=== PATIENT | female | born 1990 | race Caucasian/White ===

== ENCOUNTER 2018-03-30 11:18 | Inpatient (IN) | payer OTHER ==
[~2018-03-30] VITALS: Ht 165.1 cm; Wt 127.0 kg
[2018-03-30] MEDS ORDERED: METOCLOPRAMIDE HCL 5 MG/ML 2 ML VIAL IVP PRN (11:45)
[2018-03-30] MEDS ORDERED: LIDOCAINE/PF 1% 30 ML VIAL INJ PRN (11:45)
[2018-03-30] MEDS ORDERED: FentaNYL CITRATE-PF 100 MCG/2 ML VIAL IVP PRN (11:45)
[2018-03-30] MEDS ORDERED: RINGERS SOLUTION,LACTATED 1,000 ML IV PRN (11:45)
[2018-03-30] MEDS ORDERED: CITRIC ACID/SODIUM CITRATE 30 ML SOLUTION UDCUP PO PRN (11:45)
[2018-03-30] MEDS ORDERED: OXYTOCIN 30 UNITS/LACT RINGERS 500 ML IV ONE (11:45)
[2018-03-30] MEDS ORDERED: OXYGEN THERAPY IH SCH (11:45)
[2018-03-30 11:53] VITALS: BP 138/82
[2018-03-30 12:33] LABS: BASOPHILS % (AUTO) 0.3 % (0.0-2.0); EOSINOPHILS % (AUTO) 0.2 % (1.0-6.0); HEMATOCRIT 38.2 % (36-46); HEMOGLOBIN 12.6 g/dL (12.0-16.0); LYMPHOCYTES # (AUTO) 2.3 K/uL (1.0-4.8); LYMPHOCYTES % (AUTO) 18.7 % (22.0-44.0); MEAN CORPUSCULAR HEMOGLOBIN 29.7 pg (26.0-34.0); MEAN CORPUSCULAR VOLUME 90 fL (80-100); MONOCYTES # (AUTO) 0.7 K/uL (0.1-1.0); MONOCYTES % (AUTO) 5.4 % (2.0-9.0); NEUTROPHILS # (AUTO) 9.2 K/uL (1.8-7.7); NEUTROPHILS % (AUTO) 75.4 % (40.0-70.0); PLATELET COUNT (AUTO)-OB 290 K/uL (150-450); RED BLOOD CELL COUNT(AUTO) 4.26 MIL/uL (4.00-5.20); RED CELL DISTRIBUTION WIDTH 13.6 % (11.5-14.5)
[2018-03-30] MEDS: MISOPROSTOL 25 MCG TABLET PO SCH ×4 (13:01→21:49)
[2018-03-30] MEDS: RINGERS SOLUTION,LACTATED 1,000 ML IV SCH ×2 (13:01→20:24)
[2018-03-30] MEDS ORDERED: AMPICILLIN SODIUM 2 GM/NS 100 ML IV ONE (14:15)
[2018-03-30] MEDS ORDERED: MISOPROSTOL 25 MCG TABLET PO ONE (17:30)
[2018-03-30] MEDS ORDERED: AMPICILLIN SODIUM 1 GM/NS 50 ML IV SCH (19:00)
[2018-03-30] MEDS ORDERED: RANI-248 PO (20:15)
[2018-03-30] MEDS ORDERED: PNV11TAB PO (20:15)
[2018-03-30] MEDS ORDERED: INSU100V SQ (20:45)
[2018-03-30] MEDS ORDERED: INSNPH SQ (20:47)
[2018-03-30 20:59] LABS: GLUCOMETER DEV NAME(LOC) 4S 8; GLUCOSE,POINT OF CARE 82 MG/DL (70-110)
[2018-03-30 20:59] LABS: GLUCOMETER DEV NAME(LOC) 4S 8; GLUCOSE,POINT OF CARE 126 MG/DL (70-110)
[2018-03-31] MEDS ORDERED: MISOPROSTOL 100 MCG TABLET ONE (01:53)
[2018-03-31] MEDS: MISOPROSTOL 25 MCG TABLET PO SCH ×2 (01:55→05:57)
[2018-03-31] MEDS: RINGERS SOLUTION,LACTATED 1,000 ML IV SCH ×2 (04:05→11:46)
[2018-03-31 08:03] LABS: GLUCOMETER DEV NAME(LOC) 4S 8; GLUCOSE,POINT OF CARE 88 MG/DL (70-110)
[2018-03-31] MEDS ORDERED: OXYTOCIN 30 UNITS/LACT RINGERS 500 ML IV PRN (11:31)
[2018-03-31] MEDS ORDERED: AMPICILLIN SODIUM 2 GM/NS 100 ML IV ONE (12:04)
[2018-03-31] MEDS ORDERED: ROPIVACAINE HCL/PF 0.2% 100 ML ED ONE (12:38)
[2018-03-31] MEDS ORDERED: ROPIVACAINE HCL/PF 0.2% 100 ML ED PRN (15:06)
[2018-03-31] MEDS ORDERED: DiphenhydrAMINE HCL 50 MG/ML VIAL IVP PRN (15:15)
[2018-03-31] MEDS ORDERED: ONDANSETRON HCL 4 MG/2 ML VIAL IVP PRN (15:15)
[2018-03-31] MEDS ORDERED: GLYCERIN/WITCH HAZEL LEAF 40 PADS JAR TP PRN (21:30)
[2018-03-31] MEDS ORDERED: OXYTOCIN 30 UNITS/LACT RINGERS 500 ML IV ONE (21:30)
[2018-03-31] MEDS ORDERED: MAGNESIUM HYDROXIDE SUSPENSION 30 ML UDCUP PO PRN (21:30)
[2018-03-31] MEDS ORDERED: OxyCODONE HCL/ACETAMINOPHEN 5-325 MG TABLET PO PRN ×2 (21:30)
[2018-03-31] MEDS ORDERED: LANOLIN 7 GM OINTMENT TP PRN (21:30)
[2018-03-31] MEDS ORDERED: BENZOCAINE 20%/MENTHOL 56 GM SPRAY CANISTER TP PRN (21:30)
[2018-04-01 06:19] LABS: GLUCOMETER DEV NAME(LOC) 4S 8; GLUCOSE,POINT OF CARE 104 MG/DL (70-110)
[2018-04-01 06:27] LABS: BASOPHILS % (AUTO) 0.3 % (0.0-2.0); EOSINOPHILS % (AUTO) 0 % (1.0-6.0); HEMOGLOBIN 11.9 g/dL (12.0-16.0); LYMPHOCYTES # (AUTO) 2.7 K/uL (1.0-4.8); LYMPHOCYTES % (AUTO) 15.1 % (22.0-44.0); MEAN CORPUSCULAR HEMOGLOBIN 30.6 pg (26.0-34.0); MEAN CORPUSCULAR HGB CONC 34.1 G/dL (31.0-37.0); MEAN CORPUSCULAR VOLUME 90 fL (80-100); MONOCYTES # (AUTO) 1.1 K/uL (0.1-1.0); MONOCYTES % (AUTO) 6.1 % (2.0-9.0); NEUTROPHILS # (AUTO) 14.3 K/uL (1.8-7.7); NEUTROPHILS % (AUTO) 78.5 % (40.0-70.0); PLATELET COUNT (AUTO)-OB 274 K/uL (150-450); RED CELL DISTRIBUTION WIDTH 13.7 % (11.5-14.5)
[2018-04-01] MEDS: IBUPROFEN 800 MG TABLET PO PRN (11:25)
[2018-04-01 11:29] LABS: GLUCOMETER DEV NAME(LOC) 4S 8; GLUCOSE,POINT OF CARE 152 MG/DL (70-110)
[2018-04-02] MEDS ORDERED: IBUP-2071 PO (06:34)
[2018-04-02] MEDS ORDERED: DSS100 PO (06:37)
[2018-04-02] MEDS: IBUPROFEN 800 MG TABLET PO PRN (08:25)
== END 2018-04-02 13:30 | disposition home or self-care (01) | DRG 560 ==
LOC: OBSVTOIN 11:29 → 4S 11:29
PROVIDERS: ADMIT Obstetrics & Gynecology; ATTEND Obstetrics & Gynecology
PROC: 3E02340 Introduction of Influenza Vaccine into Muscle, Percutaneous Approach (ICD-10-PCS; 2018-03-30)
PROC: 10E0XZZ Delivery of Products of Conception, External Approach (ICD-10-PCS; principal; 2018-03-31)
PROC: 0KQM0ZZ Repair Perineum Muscle, Open Approach (ICD-10-PCS; 2018-03-31)
PROC: 10907ZC Drainage of Amniotic Fluid, Therapeutic from Products of Conception, Via Natural or Artificial Opening (ICD-10-PCS; 2018-03-31)
PROC: 3E0R3BZ Introduction of Anesthetic Agent into Spinal Canal, Percutaneous Approach (ICD-10-PCS; 2018-03-31)
PROC: 00HU33Z Insertion of Infusion Device into Spinal Canal, Percutaneous Approach (ICD-10-PCS; 2018-03-31)
DX: O24.420 Gestational diabetes mellitus in childbirth, diet controlled (principal); O14.94 Unspecified pre-eclampsia, complicating childbirth; O70.1 Second degree perineal laceration during delivery; Z3A.37 37 weeks gestation of pregnancy; Z37.0 Single live birth; O69.81X0 Labor and delivery complicated by cord around neck, without compression, not applicable or unspecified; O77.0 Labor and delivery complicated by meconium in amniotic fluid; Z23 Encounter for immunization
CPT/HCPCS: 86850; 86900; 86901; 90686; J0290; J2590; J2795; J3490; J7120